=== PATIENT | male | born 1945 | race Caucasian/White ===

== ENCOUNTER 2020-04-02 06:47 | Inpatient (IN) | payer MEDICARE, OTHER ==
[~2020-04-02] VITALS: Ht 172.7 cm; Wt 81.2 kg
[~2020-04-02 06:47] MED LIST: ASPI-1158 PO; CLOP75TA15 PO; COR3 PO; FURO40TA5 PO; PEPJ2 IV; TAMS-11 PO
[2020-04-02 07:32] LABS: BASOPHILS % 0.6 % (0.0-2.0); HEMATOCRIT. 32.9 % (42.0-52.0); HEMOGLOBIN. 11.4 g/dL (14.0-18.0); LYMPHOCYTES % 9.4 % (20.0-50.0); MEAN CORPUSCULAR HEMOGLOBIN 31.8 pg (28.0-32.0); MEAN CORPUSCULAR VOLUME 91.5 fL (80.0-94.0); MEAN PLATELET VOLUME 7.9 fl (7.4-10.4); MONOCYTES % 6.5 % (2.0-8.0); NEUTROPHILS % 81.5 % (40.0-76.0); PLATELET 286 x1000/uL (130-400); RED BLOOD CELL COUNT 3.59 mill/uL (4.7-6.1); RED CELL DISTRIBUTION WIDTH 13.4 % (11.6-14.6)
[2020-04-02 07:40] LABS: CHLORIDE 100 mEq/L (98-107)
[2020-04-02] MEDS ORDERED: ASPIRIN 325MG EC TABLET PO ONE (08:00)
[2020-04-02] MEDS ORDERED: MORPHINE SULFATE 4 MG/ML CPJ (NOT FOR IM USE) IV ONE (08:00)
[2020-04-02] MEDS: FUROSEMIDE 40MG/4ML VIAL IVP SCH (13:40)
[2020-04-02] MEDS: CARVEDILOL 3.125 MG TABLET PO SCH ×2 (14:50→21:16)
[2020-04-02] MEDS ORDERED: DOCUSATE SODIUM 100MG CAPSULE PO PRN (18:00)
[2020-04-02] MEDS ORDERED: ONDANSETRON HCL 4MG/2ML INJ IV PRN (18:00)
[2020-04-02] MEDS ORDERED: IPRATROPIUM/ALBUTEROL 0.5-3(2.5)MG/3ML NEB HHN PRN (18:00)
[2020-04-02] MEDS ORDERED: CLONIDINE 0.1MG TABLET PO PRN (18:00)
[2020-04-02] MEDS ORDERED: ACETAMINOPHEN 325MG TABLET PO PRN (18:00)
[2020-04-02] MEDS ORDERED: LORAZEPAM 0.5MG TABLET PO PRN (18:00)
[2020-04-02] MEDS: CLOPIDOGREL 75MG TABLET PO SCH (18:22)
[2020-04-02] MEDS: TAMSULOSIN HCL 0.4MG SR CAPSULE PO SCH (18:22)
[2020-04-02] MEDS: NICOTINE 14MG PATCH TD SCH (18:23)
[2020-04-02 18:24] LABS: TOTAL IRON BINDING CAPACITY 207 ug/dL (250-450)
[2020-04-02 20:00] VITALS: BP 127/51
[2020-04-02 22:51] LABS: CLARITY URINE CLEAR (CLEAR); COLOR URINE YELLOW (YELLOW); KETONES URINE NEGATIVE (NEGATIVE); LEUKOCYTE ESTERASE URINE NEGATIVE (NEGATIVE); NITRITE URINE NEGATIVE (NEGATIVE); OCCULT BLOOD URINE NEGATIVE (NEGATIVE); PROTEIN URINE TRACE (NEGATIVE); SPECIFIC GRAVITY URINE 1.018 (1.005-1.030)
[2020-04-02 23:01] LABS: *COCAINE SCREEN URINE NEGATIVE (NEGATIVE); CANNABINOID URINE SCREEN NEGATIVE (NEGATIVE); METHADONE URINE SCREEN NEGATIVE (NEGATIVE); OPIATES URINE SCREEN PRESUMTIVE POSITIVE (NEGATIVE); PHENCYCLIDINE URINE SCREEN NEGATIVE (NEGATIVE)
[2020-04-02 23:02] LABS: *AMPHETAMINES SCREEN URINE NEGATIVE (NEGATIVE); *BARBITURATES SCREEN URINE NEGATIVE (NEGATIVE); *BENZODIAZEPINES SCREEN URINE NEGATIVE (NEGATIVE)
[2020-04-03 00:45] VITALS: BP 109/51
[2020-04-03 01:47] LABS: HEPATITIS B SURFACE ANTIGEN NEGATIVE
[2020-04-03 01:50] LABS: VITAMIN B12 SERUM 758 pg/mL (211-911)
[2020-04-03 02:16] LABS: HEPATITIS A AB IGM NEGATIVE (NEGATIVE)
[2020-04-03 03:09] LABS: FERRITIN 2493 ng/mL (22-322)
[2020-04-03 04:00] VITALS: BP 138/51
[2020-04-03] MEDS: HYDROCODONE/ACETAMINOPHEN 5/325MG TABLET PO PRN ×2 (06:02→20:55)
[2020-04-03 07:13] LABS: BASOPHILS % 0.3 % (0.0-2.0); EOSINOPHILS % 1.6 % (0.0-5.0); HEMATOCRIT. 30.5 % (42.0-52.0); HEMOGLOBIN. 10.6 g/dL (14.0-18.0); MEAN CORPUSCULAR HEMOGLOBIN 31.7 pg (28.0-32.0); MEAN CORPUSCULAR VOLUME 91.1 fL (80.0-94.0); MONOCYTES % 7.1 % (2.0-8.0); PLATELET 299 x1000/uL (130-400); RED BLOOD CELL COUNT 3.34 mill/uL (4.7-6.1); RED CELL DISTRIBUTION WIDTH 13.4 % (11.6-14.6)
[2020-04-03 07:17] LABS: CHLORIDE 101 mEq/L (98-107)
[2020-04-03 07:24] LABS: PHOSPHORUS 4.3 mg/dL (2.5-4.9)
[2020-04-03 08:00] VITALS: BP 115/51
[2020-04-03] MEDS ORDERED: BUMETANIDE 1MG/4ML VIAL IV SCH (08:00)
[2020-04-03] MEDS: FUROSEMIDE 40MG/4ML VIAL IVP SCH ×2 (09:00→17:00)
[2020-04-03] MEDS: NICOTINE 14MG PATCH TD SCH (09:00)
[2020-04-03] MEDS: TAMSULOSIN HCL 0.4MG SR CAPSULE PO SCH (09:00)
[2020-04-03] MEDS: CARVEDILOL 3.125 MG TABLET PO SCH ×2 (09:00→20:54)
[2020-04-03] MEDS: ASPIRIN 81MG EC TABLET PO SCH (09:00)
[2020-04-03] MEDS: CLOPIDOGREL 75MG TABLET PO SCH (09:00)
[2020-04-03 12:00] VITALS: BP 121/64
[2020-04-03 16:00] VITALS: BP 98/53
[2020-04-03 20:00] VITALS: BP 116/57
[2020-04-04] VITALS: BP 107/63
[2020-04-04 04:00] VITALS: BP 114/59
[2020-04-04 08:00] VITALS: BP 104/57
[2020-04-04] MEDS: CARVEDILOL 3.125 MG TABLET PO SCH (08:26)
[2020-04-04] MEDS: TAMSULOSIN HCL 0.4MG SR CAPSULE PO SCH (08:36)
[2020-04-04] MEDS: CLOPIDOGREL 75MG TABLET PO SCH (08:36)
[2020-04-04] MEDS: ASPIRIN 81MG EC TABLET PO SCH (08:36)
[2020-04-04] MEDS: FUROSEMIDE 40MG/4ML VIAL IVP SCH (08:36)
[2020-04-04] MEDS: NICOTINE 14MG PATCH TD SCH ×2 (08:36→08:50)
[2020-04-04 13:09] VITALS: BP 117/57
== END 2020-04-04 16:35 | disposition home or self-care (01) | DRG 280 ==
LOC: ER 06:47 → ENRESERV 17:21 → 6WST 19:50
PROVIDERS: ADMIT Internal Medicine; ATTEND Internal Medicine
DX: I21.4 Non-ST elevation (NSTEMI) myocardial infarction (principal); J96.00 Acute respiratory failure, unspecified whether with hypoxia or hypercapnia; N17.9 Acute kidney failure, unspecified; I31.9 Disease of pericardium, unspecified; I13.0 Hypertensive heart and chronic kidney disease with heart failure and stage 1 through stage 4 chronic kidney disease, or unspecified chronic kidney disease; D64.9 Anemia, unspecified; D72.829 Elevated white blood cell count, unspecified; E11.65 Type 2 diabetes mellitus with hyperglycemia; E78.5 Hyperlipidemia, unspecified; F17.200 Nicotine dependence, unspecified, uncomplicated; I25.10 Atherosclerotic heart disease of native coronary artery without angina pectoris; R74.0 Nonspecific elevation of levels of transaminase and lactic acid dehydrogenase [LDH]; E78.00 Pure hypercholesterolemia, unspecified; J44.9 Chronic obstructive pulmonary disease, unspecified; N40.0 Benign prostatic hyperplasia without lower urinary tract symptoms; I50.9 Heart failure, unspecified; N18.9 Chronic kidney disease, unspecified; E11.22 Type 2 diabetes mellitus with diabetic chronic kidney disease; I25.2 Old myocardial infarction; Z95.1 Presence of aortocoronary bypass graft; Z88.5 Allergy status to narcotic agent; Z79.82 Long term (current) use of aspirin; Z79.84 Long term (current) use of oral hypoglycemic drugs; Z79.899 Other long term (current) drug therapy; Z85.46 Personal history of malignant neoplasm of prostate
CPT/HCPCS: 36415; 71045; 76700; 78582; 80048; 80053; 80076; 80305; 81003; 82607; 82728; 82746; 83540; 83550; 83735; 83880; 84100; 84145; 84484; 85025; 86705; 86709; 86803; 87340; 93005; 93306; 93970; 99285; A9558; J1940; J2270; J3490